=== PATIENT | female | born 1955 | race Caucasian/White ===

== ENCOUNTER 2020-11-22 14:44 | Emergency (ER) | payer SELFPAY ==
[2020-11-22 15:04] VITALS: BP 121/80; PULSE 73; RESP 18; TEMP 36.4; O2SAT 96; BMI 33.8
--- NOTE | 2020-11-22 15:20 | ECG_ITS ---
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 Measurements Intervals [place] Rate: 70 P: 60 [place]: 183 QRS: 16 QRSD: 101 T: 41 QT: 399 QTc: 433 Interpretive Statements SINUS RHYTHM POSSIBLE RIGHT VENTRICULAR CONDUCTION DELAY [RSR (QR) IN V1/V2] No previous ECG available for comparison Electronically Signed On 11-22-2020 19:28:31 CDT by Jerry Whitaker M.D. [id number]
--- NOTE | 2020-11-22 15:26 | W.ED.DIZZY ---
HPI - Dizziness General: Chief Complaint: Dizziness Stated Complaint: N/V, DIZZY, COLD SWEATS Time Seen by Provider: 11/22/20 15:19 History of Present Illness: HPI Narrative: Patient states that she has been feeling fine until she had a phone call this afternoon and when she got up she felt real dizzy after from culture back down she broke out in a cold sweat has been dizzy on and off last couple hours. Denies any shortness of breath chest pain nausea vomiting or diarrhea. Denies any ear problems. Has not been in the heat. Did not eat regular breakfast this morning as she normally does MD elicited complaint: dizziness Onset (ago): hour(s) Timing: sudden onset Severity: mild Description: room spinning Exacerbating factors: movement/ambulation Relieving factors: remaining still Associated symptoms: Reports no associated symptoms; Denies chest pain, chills, headache(s), nausea, nasal congestion or vomiting Associated neuro symptoms: Reports no associated symptoms Review of Systems Const: Denies: fever(s), chills or body aches Eyes: Denies: change in vision or blurry vision ENMT: Denies: throat pain or nasal congestion Card: Denies: chest pain or dyspnea on exertion Resp: Denies: dyspnea, productive cough or non-productive cough GI: Denies: abdominal pain, nausea or vomiting Musc: Denies: extremity pain Skin/Breast: Denies: rash Neuro: Reports: dizziness; Denies: headache(s) Psych: Denies: anxiety or depression Sukhwinder/Lymph: Denies: easy bruising PFSH ED PFSH: Social History Smoking and tobacco status: former smoker Physical Exam Const: COMMON NORMALS: no acute distress, average body habitus and patient oriented x3 HENMT: COMMON NORMALS: normocephalic HEAD & SCALP: normal to inspection and normocephalic FACE & SINUS: normal facial exam Eye: COMMON NORMALS: conjunctivae normal GENERAL EYE: appearance normal, both eyes and all related structures CONJUNCTIVA: Yes conjunctivae normal Neck/C-Spine: COMMON NORMALS: no JVD Chest: COMMONS NORMALS: normal inspection of the chest Resp: COMMON NORMALS: normal respiratory effort and clear to auscultation bilaterally AUSCULTATION: clear to auscultation bilaterally Cardio: COMMON NORMALS: no JVD, regular rate and regular rhythm RATE: regular rate RHYTHM: regular rhythm GI: COMMON NORMALS: Normal to inspection, nondistended, normoactive bowel sounds present Extremity: COMMON NORMALS: normal to inspection and full ROM Neuro: COMMON NORMALS: patient oriented x3 Course Vital Signs: Vital signs: Vital Signs Temperature 97.6 F 11/22/20 15:04 Pulse Rate 72 11/22/20 15:44 Respiratory Rate 18 11/22/20 15:04 Blood Pressure 118/72 11/22/20 15:44 Pulse Oximetry 96 11/22/20 15:04 MDM - Dizziness MDM Narrative: Medical decision making narrative: Appears to be isolated episode of dizziness. Were negative for any concerning factors. EKG look fine chest x-ray fine possible allergies. Patient will follow up in the clinic if symptoms continue she will try medication. Is advised she can return here if needed. Lab Data: Labs: Lab Results 11/22/20 11/22/20 11/22/20 Range/Units 15:30 15:30 15:30 WBC 8.0 (4.0-10.0) 10^3/ uL RBC 4.75 (4.1-5.3) 10^6/u L Hgb 14.0 (11.5-15.3) g/dL Hct 44.1 (37.0-47.0) % MCV 92.8 (81-99) fl MCH 29.5 (28.0-34.0) pg MCHC 31.7 (30.0-36.0) g/dL RDW 13.3 (12.1-15.1) % Plt Count 198 (130-400) 10^3/c mm MPV 11.7 H (7.4-10.4) fL Neut % (Auto) 58.1 % Lymph % (Auto) 30.1 % Marion % (Auto) 7.8 % Eos % (Auto) 2.5 % Baso % (Auto) 1.1 % Neut # (Auto) 4.63 (1.8-7.7) 10^3/u L Lymph # (Auto) 2.4 (0.8-4.8) 10^3/u L Marion # (Auto) 0.6 (0.2-0.9) 10^3/u L Eos # (Auto) 0.2 (0.0-0.8) 10^3/u L Baso # (Auto) 0.1 (0.0-0.1) 10^3/u L Nucleated RBC % (a uto) 0 % Nucleated RBCs # 0.0 /100WBC Sodium 138 (136-145) mmol/L Potassium 3.8 (3.5-5.1) mmol/L Chloride 104 (98-107) mmol/L Carbon Dioxide 24 (22-29) mmol/L Anion Gap 13.8 (5-19) BUN 18 (8-23) mg/dL Creatinine 0.6 (0.5-0.9) mg/dL GFR Calculation 101.0 (90-130) mL/min Glucose 87 (65-115) mg/dL Calculated Osmolal ity 287 (285-295) mOsm/k g Calcium 9.3 (8.5-10.5) mg/dL Total Bilirubin 0.2 (0.15-1.2) mg/dL AST 24 (0-32) U/L ALT 20 (0-33) U/L Alkaline Phosphata se 67 (35-105) IU/L Troponin T Gen 5 n g/L 6 (0-10) ng/L Total Protein 7.2 (6.6-8.7) g/dL Albumin 4.3 (3.5-5.2) g/dL Globulin 2.9 (1.3-4.6) g/dL EKG Data^: EKG 1: EKG interpretation date: 11/22/20 EKG interpretation time: 15:43 Computer generated interpretation: EKG shows sinus rhythm ventricular rate 70 bpm [place] interval 183 ms QRS duration 1 1 ms QT 399 ms Discharge Plan Discharge Patient Disposition: Home Clinical Impression: Dizziness Condition: Stable Prescriptions: New meclizine 25 mg tablet 12.5 mg PO TID PRN (Reason: dizziness) Qty: 14 RF: 0 Discharge Orders: Discharge ED (Routine); Ordered 11/22/20 Ordered By: Ubaldo Moran Discharge Diet: Usual diet Discharge Activity: Increase activity as tolerated Patient Instructions: Dizziness (ED) Activity Restrictions/Additional Instructions: Follow-up with medical provider as directed. Take medications as prescribed. Return to the ER or your medical provider if condition worsens. Please read and understand discharge instructions. If any questions ask please. Coding Level of Care Code ED Extrusion Process Operator for Chg Fwd Exam Comprehensive
[2020-11-22] MEDS: sodium chloride 0.9% 1,000 ML 999 ML IV (15:40)
[2020-11-22 15:44] VITALS: BP 118/72; BP 132/80; BP 141/75; PULSE 72; PULSE 73; PULSE 74
[2020-11-22 15:50] LABS: Basophils # 0.1 10^3/uL (0.0-0.1); Basophils % 1.1 %; Eosinophils # 0.2 10^3/uL (0.0-0.8); Eosinophils % 2.5 %; Hematocrit 44.1 % (37.0-47.0); Lymphocytes # 2.4 10^3/uL (0.8-4.8); Lymphocytes % 30.1 %; Mean Corpuscular HGB Conc 31.7 g/dL (30.0-36.0); Mean Corpuscular Hemoglobin 29.5 pg (28.0-34.0); Mean Corpuscular Volume 92.8 fl (81-99); Mean Platelet Volume 11.7 fL (7.4-10.4); Monocytes # 0.6 10^3/uL (0.2-0.9); Monocytes % 7.8 %; Neutrophils # 4.63 10^3/uL (1.8-7.7); Neutrophils % 58.1 %; Nucleated Red Blood Cells % 0 %; Platelet Count 198 10^3/cmm (130-400); Red Blood Count 4.75 10^6/uL (4.1-5.3); Red Cell Distribution Width 13.3 % (12.1-15.1)
[2020-11-22 16:13] LABS: Alanine Aminotransferase 20 U/L (0-33); Albumin Level 4.3 g/dL (3.5-5.2); Alkaline Phosphatase 67 IU/L (35-105); Anion Gap 13.8 (5-19); Aspartate Amino Transferase 24 U/L (0-32); Blood Urea Nitrogen 18 mg/dL (8-23); Calcium 9.3 mg/dL (8.5-10.5); Carbon Dioxide 24 mmol/L (22-29); Chloride 104 mmol/L (98-107); Globulin 2.9 g/dL (1.3-4.6); Glucose 87 mg/dL (65-115); Osmolality Calculated 287 mOsm/kg (285-295); Potassium 3.8 mmol/L (3.5-5.1); Sodium 138 mmol/L (136-145); Total Bilirubin 0.2 mg/dL (0.15-1.2); Total Protein 7.2 g/dL (6.6-8.7)
[2020-11-22 16:16] LABS: Troponin T (5th) Once 6 ng/L (0-10)
[2020-11-22 16:58] VITALS: BP 125/86; PULSE 75; RESP 16; O2SAT 98
[2020-11-22 17:20] LABS: Add Urine Microscopic? YES; Bilirubin Urine Neg (Negative); Blood Urine 2+ (Negative); Glucose Urine UA Norm (Normal); Ketones Urine Negative (Negative); Leukocyte Esterase Urine Negative (Negative); Nitrate Urine Negative (Negative); Protein Urine Neg (Negative); Urine Appearance Hazy (CLEAR); Urine Color Yellow (Yellow); Urobilinogen Urine Norm (Negative); pH Urine 5 (5-7)
[2020-11-22 17:21] LABS: Add Urine Culture? Yes; Bacteria Urine 1+ /hpf; RBC Urine 0-4 /hpf (0-2)
== END 2020-11-22 16:59 | disposition home or self-care (01) ==
PROVIDERS: Emergency Provider Nurse Practitioner Family
DX: R42 Dizziness and giddiness (principal); Z87.891 Personal history of nicotine dependence
CPT/HCPCS: 80053; 81001; 84484; 85025; 87086; 93005; 96360; 99284; J7030

== ENCOUNTER 2023-06-18 08:20 | Outpatient (CLI) | payer MEDICARE, SELFPAY ==
--- NOTE | 2023-06-18 08:26 | CT_ITS ---
WS: [id number] LDCT LUNG CANCER SCREENING TECHNIQUE: Noncontrast CT of the chest with coronal and sagittal reformatted images. CLINICAL INFORMATION: HX OF TOBACCO USE COMPARISON: None. DLP: 75.30 mGy.cm DIvol: Mean CTDIvol: 1.60 (mGy) All CT scans at [facility] use at least one of these dose optimization techniques: automat ed exposure control; mA and/or kV adjustment per patient size (includes targeted exams where dose is matched to clinical indication); or iterative reconstruction. FINDINGS: Fibrosis RIGHT lower lobe posteromedially. No other suspicious pulmonary parenchymal abnorm alities. Normal caliber thoracic aorta. Aortic calcification. Calcified LEFT hilar nodes. No axillary lymphade nopathy. Small esophageal hiatal hernia. Moderate thoracic kyphosis. Ankylosis thoracic spine. Disc o steophyte complexes in the midthoracic spine. Calcified granuloma LEFT lower lobe. IMPRESSION: CT/CT lung screening [id number] LUNG-RADS: 2-Benign Appearance or Behavior FOLLOW UP: 12 Month: Continue annual screening with LDCT
== END 2023-06-18 08:21 | disposition home or self-care (01) ==
LOC: RAD 08:23
PROVIDERS: PCP Family Medicine; Visit Provider Family Medicine
DX: Z87.891 Personal history of nicotine dependence (principal); K44.9 Diaphragmatic hernia without obstruction or gangrene; M40.204 Unspecified kyphosis, thoracic region; M45.4 Ankylosing spondylitis of thoracic region; J98.4 Other disorders of lung
CPT/HCPCS: 71271

== ENCOUNTER 2023-07-03 15:30 | Outpatient (CLI) | payer MEDICARE, MEDICAID, SELFPAY | END 2023-07-03 15:31 | disposition home or self-care (01) | LOC: SLEEP 07-04 10:06 | PROVIDERS: PCP Family Medicine; Visit Provider Family Medicine | DX: G47.33 Obstructive sleep apnea (adult) (pediatric) (principal) | CPT/HCPCS: G0399 ==

== ENCOUNTER → 2023-08-01 10:31 | Outpatient (BNVA) | payer MEDICARE, MEDICAID, SELFPAY | PROVIDERS: PCP Family Medicine; Visit Provider Internal Medicine Rheumatology | DX: Z79.899 Other long term (current) drug therapy (principal); M19.90 Unspecified osteoarthritis, unspecified site; Z11.1 Encounter for screening for respiratory tuberculosis; Z11.59 Encounter for screening for other viral diseases; M05.79 Rheumatoid arthritis with rheumatoid factor of multiple sites without organ or systems involvement; Z71.85 Encounter for immunization safety counseling | CPT/HCPCS: 36415; 80076; 82565; 85025; 86480; 86704; 86803; 87340; 99204 ==

== ENCOUNTER 2023-09-07 10:52 | Outpatient (CLI) | payer MEDICARE, MEDICAID, SELFPAY ==
--- NOTE | 2023-09-07 11:12 | MM_ITS ---
WS: [id number] BILATERAL 3D TOMOSYNTHESIS DIGITAL SCREENING MAMMOGRAPHY WITH CAD CLINICAL INFORMATION: SCREENING HISTORY: Screening mammogram. No current complaints. COMPARISON: None available TECHNIQUE: Bilateral CC and MLO views. FINDINGS: Scattered fibroglandular densities bilaterally. No suspicious focal mass, asymmetry, calcifications, or architectural distortion. No evidence of malignancy. Few incidental punctate calcifications. MM/[place] [id number] IMPRESSION: BI-RADS: 2-Benign FOLLOW UP: 1 Year Follow-up Recommend return to annual screening mammography.
== END 2023-09-07 10:53 | disposition home or self-care (01) ==
LOC: RAD 10:53
PROVIDERS: PCP Family Medicine; Visit Provider Family Medicine
DX: Z12.31 Encounter for screening mammogram for malignant neoplasm of breast (principal); R92.323 Mammographic fibroglandular density, bilateral breasts; R92.1 Mammographic calcification found on diagnostic imaging of breast
CPT/HCPCS: 77063; 77067

== ENCOUNTER 2023-10-23 11:05 | Outpatient (CLI) | payer MEDICARE, MEDICAID, SELFPAY ==
[2023-10-23 11:19] VITALS: PULSE 73; RESP 18; O2SAT 98
[2023-10-23 11:23] VITALS: PULSE 72
[2023-10-23] MEDS: albuterol 2.5 mg/3 mL Neb INHALATION (11:24)
== END 2023-10-23 11:06 | disposition home or self-care (01) ==
PROVIDERS: PCP Family Medicine; Visit Provider Family Medicine
DX: J84.10 Pulmonary fibrosis, unspecified (principal)
CPT/HCPCS: 94060

== ENCOUNTER → 2023-12-12 10:30 | Outpatient (BNVA) | payer MEDICARE, MEDICAID, SELFPAY | PROVIDERS: PCP Family Medicine; Visit Provider Internal Medicine Rheumatology | DX: M05.79 Rheumatoid arthritis with rheumatoid factor of multiple sites without organ or systems involvement (principal); Z79.899 Other long term (current) drug therapy; Z71.85 Encounter for immunization safety counseling | CPT/HCPCS: 36415; 80076; 82565; 85025; 85651; 86140; 99214 ==

== ENCOUNTER 2024-01-01 10:36 | Observation (INO) | payer MEDICARE, MEDICAID, SELFPAY ==
[2024-01-01] VITALS (18 sets, daily range): BP systolic 94–124; BP diastolic 48–86; PULSE 65–94; RESP 14–18; TEMP 36.4–37.3; O2SAT 92–97; BMI 37.3
[2024-01-01] MEDS: sodium chloride 0.9% 1,000 ML 30 ML IV (06:31)
--- NOTE | 2024-01-01 06:41 | P.ANESASSM_ITS ---
Pre-Anesthetic Assessment Height/Weight: Height 1.57 m Weight 92.533 kg Temp Pulse Resp BP Pulse Ox O2 Del Method 97.8 F 86 18 124/86 97 Room Air 01/01/24 06:08 01/01/24 06:08 01/01/24 06:08 01/01/24 06:08 01/01/24 06:08 01/01/24 06:23 Operation Date: 01/01/24 07:00 Proposed Procedures p Total Vaginal Hysterectomy TVH 84276, 11539, 24880, 70562, N81.4, N81.6(Not Applicable) - oM Bentley MD s Salpingo-Oophorectomy (Vaginal)(Bilateral) - Mo Bentley MD s Anterior Repair Anterior Colporrhaphy(Not Applicable) - MD alberto Jordan Posterior Repair Posterior Colporrhaphy(Not Applicable) - Mo Bentley MD s Midurethral sling(Not Applicable) - MD alberto Jordan Sacrospinous Ligament Suspension Sacrospinous Fixation(Not Applicable) - Mo Bentley MD Familial anesthetic complications: None Was Beta Donavon taken within 24 hours: N/A Was Clonidine taken within 24 hours: N/A Last intake: Intake Last Liquid Date 12/31/23 Last Liquid Time 21:00 Last Solid Date 12/31/23 Last Solid Time 21:00 Social No alcohol and No tobacco Exam alert, oriented x 3, clear to auscultation bilaterally and regular rate & rhythm Airway Mallampati: Class II Dentition: false Pulmonary Sleep Apnea Pulmonary fibrosis RLL - no functional limitations, no O2 Metabolic Morbid Obesity [facility] Rheumatoid Arthritis Anesthetic Plan ASA status: 3 Anesthesia: General Risk of > 500 ml blood loss (7ml/kg in children): No Medications/Allergies Home Medications Medication Instructions Recorded Confirmed Last Taken Type ibuprofen 200 mg tablet 400 mg PO Q6H PRN Pain (Scale 08/01/23 12/12/23 1 Day Ago History Score 1-3) ~12/10/23 hydroxychloroquine 200 mg tablet 200 mg PO BID #180 tabs 12/12/23 01/01/24 12/30/23 Rx prednisone 10 mg tablet See Rx Instructions PO .COMPLEX 12/12/23 01/01/24 12/04/23 Rx PRN joint pain #30 tabs Allergies Allergy/AdvReac Type Severity Reaction Status Date / Time No Known Allergies Allergy Verified 01/01/24 05:58 Current Medications Generic Name Dose Route Start Last Admin Trade Name Sadi PRN Reason Stop Dose Admin Sodium Chloride 1,000 mls @ 30 mls/hr 01/01/24 06:00 01/01/24 06:31 Sodium Chloride 0.9% IV 01/02/24 05:59 30 mls/hr .Q24H CAMRYN Administration PFSH Anesthesia Medical History Joint pain Back pain Uterus prolapse Cystocele with rectocele Immunization counseling High risk medication use Seropositive rheumatoid arthritis of multiple sites Surgical History History of tonsillectomy History of delivery Family History Other Diabetes Heart disease Hyperlipidemia Hypertension Rheumatoid arthritis Stroke Denies family history of Lupus (systemic lupus erythematosus) Osteoporosis Chronic kidney disease (CKD) Lung disease Cancer Social History Smoking and tobacco/nicotine status: never used tobacco/nicotine Data Anesthesia 01/01/24 06:11 Cardiac Studies: 2 No Data to Display
--- NOTE | 2024-01-01 06:58 | W.PM.OPSUD ---
Surgery/Procedure H&P Update DATE OF PROCEDURE: January 01, 2024 DATE H&P PERFORMED: 12/10/23 H&P UPDATE INFORMATION: I have reviewed H&P completed within last 30 days, I have examined patient prior to procedure and No changes to prior documentation PLANNED PROCEDURE: Operation Date: 01/01/24 07:00 [place]posed [place] [address], 68119, 63507, 75870, N81.4, N81.6(Not Applicable) - Mo Bentley MD s Salpingo-Oophorectomy (Vaginal)(Bilateral) - Mo Bentley MD s Anterior Repair Anterior Colporrhaphy(Not Applicable) - MD alberto Jordan Posterior Repair Posterior Colporrhaphy(Not Applicable) - MD alberto Jordan Midurethral sling(Not Applicable) - Mo Bentley MD s Sacrospinous Ligament Suspension Sacrospinous Fixation(Not Applicable) - Mo Bentley MD
[2024-01-01 07:03] LABS: Anion Gap 14.6 (5-19); Blood Urea Nitrogen 8 mg/dL (8-23); Calcium 9.1 mg/dL (8.5-10.5); Carbon Dioxide 22 mmol/L (22-29); Chloride 106 mmol/L (98-107); Creatinine Clr Calc Pharmacy 73.2449; Glomerular Filtration Rate 83.7 mL/min (90-130); Glucose 100 mg/dL (65-115); Osmolality Calculated 286 mOsm/kg (285-295); Potassium 3.6 mmol/L (3.5-5.1); Sodium 139 mmol/L (136-145)
[2024-01-01] MEDS: scopolamine 1.5 Patch 1 PATCH TRANSDERMA (07:24)
[2024-01-01] MEDS: ceFOXitin 2,000 mg SDV 2000 MG IVP (07:25)
[2024-01-01] MEDS: sodium chloride 0.9% 500 ML IV (07:25)
[2024-01-01] MEDS: metroNIDAZOLE IV 500 MG/100 ML PREMIX 100 MG IV (07:25)
[2024-01-01] MEDS: lidocaine-epi 2% PF 1:200,000 20 mL SDV 40 ML XX (08:14)
--- NOTE | 2024-01-01 09:55 | P.BOP_ITS ---
Date of Procedure: 01/01/24 Surgeon: Mo Bentley MD Radio Intelligence Operator(s): Procedure(s) performed: Total vaginal hysterectomy with right salpingo- oophorectomy, anterior colporrhaphy augmented with allograft, mid urethral sling, posterior colporrhaphy, and sacrospinous fixation Findings of the procedure(s): Uterine prolapse stage III, cystocele stage III, posterior vaginal magaña scar Estimated blood loss: 300 Specimen(s) removed: Uterus and right fallopian tube and ovary Post-operative diagnosis: Postop
--- NOTE | 2024-01-01 09:57 | P.OP_ITS ---
Operative Report Date of procedure: January 01, 2024 Pre-op diagnosis: Uterine prolapse stage III Cystocele stage III Stress urinary incontinence Post-op diagnosis: same Procedure done: Total vaginal hysterectomy with right salpingo-oophorectomy Anterior colporrhaphy augmented with allograft Mid urethral sling Posterior colporrhaphy Sacrospinous fixation Cystoscopy Implants: Coloplast dermis allograft Coloplast Altis sling Specimens removed/disposition: Uterus Right fallopian tube and ovary Surgeon: Mo Bentley MD Estimated blood loss (mL): 300 IV fluids (mL): 1,400 Urine output (mL): 150 Complications: None Findings: Uterine prolapse Cystocele Posterior vaginal wall scar Procedure: After informed consent, the patient was taken to the operating room where general anesthesia was administered. She was placed in the dorsal lithotomy position and prepped and draped in sterile fashion. Pre-Procedure Time-Out verifying the correct patient identity, correct procedure verified with consent, correct site and side, correct patient position, availability of correct implants and any special equipment or requirements was performed and acknowledge by the OR team. A weighted speculum was placed in the posterior vaginal wall and the right-angle retractor used to visualize the cervix. The cervix was grasped across the anterior lip with a single-toothed tenaculum and circumferentially infiltrated with 1% Xylocaine with epinephrine at this time. The cervix was circumferentially excised with the scalpel. The vaginal mucosa was dissected superiorly with sharp dissection. The anterior peritoneal reflection was identified, and it was entered with Metzenbaum scissors. A posterior colpotomy was made through the cul-de-sac space. The posterior peritoneum was identified in similar fashion and Metzenbaum scissors were used to enter the cul-de-sac. At this time, a weighted speculum was placed, advanced posteriorly into the cul-de-sac. At this time, the left and right uterosacral ligaments were isolated and ligated with 0 Vicryl. The LigaSure device was then used in a serial fashion up through the cardinal ligaments bilaterally. Finally, the uterine arteries were cross-clamped, cut, and ligated with the LigaSure device. LigaSure device was then used up through the broad ligaments superiorly and finally the uterus was rotated posteriorly. The left and right tubes were then cross-clamped and ligated with LigaSure device. The uterus was excised and submitted for pathologic evaluation. No other abnormalities were noted in the pelvic cavity. Tag sutures had been left on the remnants of the uterosacral ligaments. The right uterosacral ligament tag was placed under traction to identify the remnants of the right uterosacral ligament. A #0 PDS suture was placed to the proximal right uterosacral ligament and sutured to the anterior and posterior pelvic fascia beneath the vaginal cuff on the right side. Identical process was performed on the left, although some difficulty was encountered in identifying and actually suturing through the attenuated left uterosacral ligament. Both these sutures were tied to elevate the vaginal cuff. At this time, instruments were removed from the patient's abdominopelvic cavity. The remaining vaginal cuff mucosa and anterior and posterior fascia were then closed. Vaginal cuff closure and peritoneum were incorporated into one layer with 0 Vicryl suture in a continuous running interlocking fashion. Hemostasis was noted to be achieved. The anterior vaginal mucosa beneath the midurethra was infiltrated with 2% lidocaine with epinephrine. A vertical midline incision was made beneath the midurethra, nearly 1.5 cm length. Careful submucosal dissection was performed bilaterally up to the interior portion of the inferior pubic ramus. The insertion of adductor longus tendon on the patient?s pubic ramus was identified as reference land brenda. Palpated the notch along the internal edge of ischiopubic ramus where the adductor longus tendon and the inferior pubic ramus meet. The Altis single incision sling (SIS) was selected. Then the needle of the SIS inserted aiming at the location of this notch. One of the integrated self- fixating tips place onto the needle by sliding it over the end of the needle. The needle/sling assembly was inserted toward the location of identified reference notch making sure that the flat of the handle is perpendicular to the desired path. The needle was tracked along the posterior surface of the ischiopubic ramus until the midline brenda on the mesh is approximately at the midline position under the urethra. The needle was removed and the same was repeated on the contralateral side until the appropriate sling tension under the urethra was achieved ensuring that the mesh lays flat. The needle was removed and vaginal incision was closed in a running interlocking fashion with 2-0 Vicryl. Then an anterior colporrhaphy was performed. The vaginal mucosa was then injected in the midline with normal saline. The vaginal mucosa was then injected in the midline with normal saline. The vaginal mucosa was scored in the midline with the Bovie approximately 1 cm medial to the urethral meatus to 1 cm distal to the vaginal cuff. This vaginal mucosa was then undermined and then incised in the midline with the Metzenbaum scissors. The lateral aspects of the vaginal mucosa were then grasped with the Allis clamps and the vaginal mucosa was then dissected off the underlying fascia with the Metzenbaum scissors. Again, there was noted to be quite a bit of oozing at the incision, which was controlled with cautery. After adequate dissection was performed, bilaterally. A a Coloplast dermis allograft was modified at time of application to fit spacea, 3 x 3 cm piece . The allograft placed in front of cystocele ready to be implanted with the Basement Membrane facing the vagina mucosa. Suture is placed at distal end of graft and placed towards vaginal cuff. Final suture is placed on proximal portion of the graft to complete the placement overlying the bladder. Then Interrupted vertical mattress sutures of 0 Vicryl were used to elevate the cystocele superiorly. The excessive vaginal mucosa was then trimmed with the Metzenbaum scissors and the vaginal mucosa was then reapproximated in the running interlocking fashion with 2-0 Vicryl. The anterior vaginal mucosa beneath the midurethra was infiltrated with 2% lidocaine with epinephrine. A vertical midline incision was made beneath the midurethra, nearly 1.5 cm length. Careful submucosal dissection was performed bilaterally up to the interior portion of the inferior pubic ramus. The insertion of adductor longus tendon on the patient?s pubic ramus was identified as reference land brenda. Palpated the notch along the internal edge of ischiopubic ramus where the adductor longus tendon and the inferior pubic ramus meet. The Altis single incision sling (SIS) was selected. Then the needle of the SIS inserted aiming at the location of this notch. One of the integrated self- fixating tips place onto the needle by sliding it over the end of the needle. The needle/sling assembly was inserted toward the location of identified reference notch making sure that the flat of the handle is perpendicular to the desired path. The needle was tracked along the posterior surface of the ischiopubic ramus until the midline brenda on the mesh is approximately at the midline position under the urethra. The needle was removed and the same was repeated on the contralateral side until the appropriate sling tension under the urethra was achieved ensuring that the mesh lays flat. The needle was removed and vaginal incision was closed in a running interlocking fashion with 2-0 Vicryl. A 2% lidocaine with epinephrine solution was infiltrated under the posterior vaginal mucosa midline and into the perineal body. A quinton-shaped skin incision was cut in the perineum. The posterior vaginal wall was opened vertically and midline up to the apex of the rectocele. The cut edges were held and splayed laterally with a series of Allis clamps. The open vaginal mucosa was then dissected laterally with a combination of sharp and blunt dissection, exposing the perirectal fascia. A finger is inserted through the incision in the posterior vaginal mucosa, dissecting out the rectovaginal space (RVS). The right rectal pillar (RRP) is identified. The rectal pillar can be bluntly perforated either with the finger and with the tip of a long Gianna clamp. A thin malleable retractor retractor is used for exposing the rectovaginal space in order to enter the pararectal space with retraction of the cardinal ligament, vagina, and rectum. Displacing the rectum to the left and the cardinal ligament and ureter anteriorly. A sponge dissector is used to bluntly dissect the sacrospinous ligament removing areolar tissue. The ischial spine was palpated directly, and a area approximately 2 cm medial to the spine was selected for insertion of the Anchorsure transvaginal sacrospinous fixation system. One end of the suture of Anchoresure system inserted through the sacrospinous ligament is placed through the muscular layer of the vagina. In a similar manner, the second suture is placed. The opposite end of the suture in the sacrospinous ligament is left free and held on a small hemostat. Then traction on this suture will draw the vaginal vault directly to the ligament, where a square knot affixes it to the sacrospinous ligament. After the aide stich is tied the second safety stich is tied. Then the colporrhaphy/vaginal repair is carried out in routine fashion. The perirectal fascia was then reapproximated with interrupted #2-0 Vicryl sutures to draw the lateral folds together and tuck the rectocele back. Deep interrupted sutures of #0 Vicryl were used to reapproximate the fibers of the levator ani muscles. The excess vaginal mucosa was trimmed. The posterior vaginal wall was closed with a running locked #0 Vicryl to the hymenal tags. The superficial perineal muscles were closed with running unlocked #0 Vicryl and the perineal skin was closed with running subcuticular #2-0 Vicryl. Then the Rodríguez catheter was removed and cystoscope was inserted. The bladder was filled with sterile water. Complete evaluation of the bladder mucosa was performed noting no lacerations, dimpling, tears, bleeding of the mucosa or muscular layers. Both ureteral orifices were identified. Prompt excretion of urine from both ureteral orifices was noted. Cystoscope was withdrawn. Rodríguez catheter was then placed yielding clear arjun urine. A vaginal packing with Premarin cream was placed to provide support during the healing process. The patient tolerated the procedure well and was taken to the recovery room in a stable condition. Sponge and needle counts were correct x3.
[2024-01-01] MEDS: ondansetron 2 mg/ML SDV 2 mL 4 MG IVP (10:37)
--- NOTE | 2024-01-01 10:45 | ANE.PACU2 ---
Inpatient post-anesthesia follow up: Airway intact: Yes Vital signs: Temperature 98.0 F Pulse Rate 79 Respiratory Rate 16 Blood Pressure 107/58 Pulse Oximetry 97 Oxygen Delivery Me thod Room Air Oxygen Flow Rate 6 Fraction of Inspir ed Oxygen Hydration adequate: Yes Nausea and vomiting: No Pain level: 1 Mental status: Baseline
[2024-01-01] MEDS: diphenhydrAMINE 50 mg/mL SDV 1mL 12.5 MG IVP (11:16)
[2024-01-01] MEDS: ketorolac 30 mg/mL INJ IVP ×3 (11:20→22:38)
[2024-01-01] MEDS: dextrose 5%-lactated ringers 1,000 ML 125 ML IV ×2 (11:23→19:41)
[2024-01-01] MEDS: acetaminophen 325 mg Tablet 650 MG PO (15:16)
[2024-01-01] MEDS: hydroxychloroquine 200 mg Tablet PO (17:09)
[2024-01-01] MEDS: docusate sodium 100 mg Capsule PO (17:09)
[2024-01-02 04:00] VITALS: BP 108/65; PULSE 70; RESP 14; TEMP 36.7; O2SAT 95
--- NOTE | 2024-01-02 05:15 | PC.NURSE ---
This nurse removed vaginal packing at this time, minimal bleeding noted upon removal. Patient tolerated procedure well.
[2024-01-02 05:17] LABS: Hematocrit 36.5 % (36-47); Mean Corpuscular HGB Conc 32.1 g/dL (30-55); Mean Corpuscular Hemoglobin 29.5 pg (27-33); Mean Corpuscular Volume 91.9 fl (85-98); Mean Platelet Volume 11.4 fL (7.4-10.4); Platelet Count 174 10^3/cmm (157-399); Red Blood Count 3.97 10^6/uL (3.85-5.65); Red Cell Distribution Width 13.5 % (12.1-15.1); White Blood Count 11.08 10^3/uL (3.29-11.43)
[2024-01-02] MEDS: ketorolac 30 mg/mL INJ IVP (05:46)
[2024-01-02] MEDS: hydroxychloroquine 200 mg Tablet PO (09:04)
[2024-01-02] MEDS: docusate sodium 100 mg Capsule PO (09:04)
--- NOTE | 2024-01-02 10:55 | PM.OBGYDC ---
Discharge Providers CLEANING AND MAINTENANCE WORKER Date of Admission: 01/01/24 10:36 Date of Discharge: 01/02/24 Attending Provider at Admission: Mo Bentley MD Attending Provider at Discharge: Mo Bentley MD Primary Care Provider: Doreen Wakefield DO Reason for Visit Reason for Visit: N81.4 Hospital Course Hospital Course Mrs. Vallecillo 64-year-old female with a history of uterine prolapse stage III at cystocele stage III admitted for planned total vaginal hysterectomy with bilateral salpingo-oophorectomy, augmented anterior colporrhaphy, mid urethral sling, posterior colporrhaphy and sacrospinous fixation. A total vaginal hysterectomy with right salpingo-oophorectomy was performed, the left salpingo-oophorectomy was not performed as the ovary could not be safely identified. The anterior colporrhaphy augmented with allograft, mid urethral sling, posterior colporrhaphy and sacrospinous fixation were also performed without complications. Overnight observation was uneventful. Pain well under control with minimal medication. She is afebrile and hemodynamically stable postoperatively day 1, tolerating diet well. Ambulating without difficulty. She was counseled regarding pelvic rest for 6 weeks (no sex, no tampons, no vaginal douches). Return to the emergency room if any fever, increased bleeding or pain. Physical Exam Narrative: GA: Alert and oriented ?3. HEENT: WNL. Heart: Regular rate and rhythm. Lungs: Clear to auscultation bilaterally. Abdomen: Bowel sounds present, nontender. MANAGER CLINICAL APPLICATIONS: spotting bleeding. Extremities: No edema, no cyanosis, no calves pain. Urinary Catheter Management: Rodríguez: Cath Placed During This Visit: yes, but has since been removed by the nurse Reason for Continuing Indwelling Catheter: Decision to DC Catheter Urinary Catheter Date of Insertion: 01/01/24 Urinary Catheter Time of Insertion: 07:33 Date Urinary Catheter Removed: 01/02/24 Time Urinary Catheter Discontinued: 05:15 Discharge Data Studies Completed and Pending Pending at discharge Category Date Time Status Pathology: Surgical [PTH] Routine Pth 01/01/24 08:23 Received Laboratory Results WBC 11.08 10^3/uL (3.29-11.43) 01/02/24 05:10 RBC 3.97 10^6/uL (3.85-5.65) 01/02/24 05:10 Hgb 11.70 g/dL (11.27-16.99) 01/02/24 05:10 Hct 36.5 % (36-47) 01/02/24 05:10 MCV 91.9 fl (85-98) 01/02/24 05:10 MCH 29.5 pg (27-33) 01/02/24 05:10 MCHC 32.1 g/dL (30-55) 01/02/24 05:10 RDW 13.5 % (12.1-15.1) 01/02/24 05:10 Plt Count 174 10^3/cmm (157-399) 01/02/24 05:10 MPV 11.4 fL (7.4-10.4) H 01/02/24 05:10 Sodium 139 mmol/L (136-145) 01/01/24 06:11 Potassium 3.6 mmol/L (3.5-5.1) 01/01/24 06:11 Chloride 106 mmol/L (98-107) 01/01/24 06:11 Carbon Dioxide 22 mmol/L (22-29) 01/01/24 06:11 Anion Gap 14.6 (5-19) 01/01/24 06:11 BUN 8 mg/dL (8-23) 01/01/24 06:11 Creatinine 0.7 mg/dL (0.5-0.9) 01/01/24 06:11 GFR Calculation 83.7 mL/min (90-130) L 01/01/24 06:11 Glucose 100 mg/dL (65-115) 01/01/24 06:11 Calculated Osmolality 286 mOsm/kg (285-295) 01/01/24 06:11 Calcium 9.1 mg/dL (8.5-10.5) 01/01/24 06:11 Blood Type A Positive 01/01/24 06:11 Rho(D) Type Rh positive 01/01/24 06:11 Antibody Screen Negative 01/01/24 06:11 Vitals Last Vital Signs Temp 98.0 F 01/02/24 04:00 Pulse 70 01/02/24 04:00 Resp 14 01/02/24 04:00 BP 108/65 01/02/24 04:00 Pulse Ox 95 01/02/24 04:00 O2 Del Method Room Air 01/02/24 04:00 O2 Flow Rate 6 01/01/24 09:57 Results Labs OB ([facility]): Blood Type A Positive 01/01/24 Antibody Screen Negative 01/01/24 Hct 36.5 % (36-47) 01/02/24 Hgb 11.70 g/dL (11.27-16.99) 01/02/24 Rho(D) Type Rh positive 01/01/24 Plt Count 174 10^3/cmm (157-399) 01/02/24 Hep Bs Antigen Non-reactive (Nonreactive) 08/01/23 Hep B Core Total Ab Non-reactive (Nonreactive) 08/01/23 Hepatitis C Antibody Non-reactive (Nonreactive) 08/01/23 Discharge Plan Discharge Patient Disposition: Home Condition: Stable Prescriptions: New hydrocodone-acetaminophen 5-325 mg tablet 1 tab PO Q4H PRN (Reason: pain) Qty: 20 0RF acetaminophen 325 mg capsule 325 mg PO Q4H PRN (Reason: fever or pain) Qty: 60 0RF ibuprofen 800 mg tablet 800 mg PO TID PRN (Reason: pain) Qty: 60 0RF Continued ibuprofen 200 mg tablet 400 mg PO Q6H PRN (Reason: Pain (Scale Score 1-3)) hydroxychloroquine 200 mg tablet 200 mg PO BID Qty: 180 1RF prednisone 10 mg tablet See Rx Instructions PO .COMPLEX PRN (Reason: joint pain) Qty: 30 1RF Rx Instructions: take 1 or 2 tab daily for 3-7 days prn joint pain flare PO PRN; Discharge Orders: Discharge Order (Routine); Ordered 01/02/24 Ordered By: Mo Bentley Referrals: Mo Bentley MD [Physician] - 2 weeks Discharge Diet: Soft Mechanical Discharge Activity: Limit activity as instructed Patient Instructions: Acute Wound Care (DC), Opioid Safety, Post Anesthesia Care, Vaginal Hysterectomy (GEN), Anterior Vaginal Repair (GEN), Posterior Vaginal Repair (GEN), Bladder Sling for Women (GEN) Activity Restrictions/Additional Instructions: 1. Please call [facility] on next working day to make your post-operative appointment in 2 weeks. 2. Please stay home until you come back to the clinic on first post-hospatilization check up. 3. Please follow instructions on your medications CAREFULLY. 4. If you have abdominal incision, do not cover it unless dressing is necessary because of drainage. OK to shower, but avoid bath. Leave steri-strips until they fall off. If they are still on one week after surgery, you may remove them. 5. If you had vaginal surgery or vaginal repair, Dr. Bentley may instruct you to take SITZ bath. 6. Yellow, blood tinged odorous vaginal discharge is usually normal after hysterectomy or vaginal surgeries. 7. No SEXUAL INTERCOURSE, tampons, or douches until you are completely released from the post-operative care. 8. Avoid constipation by eating right and maybe using some Metamucil or Milk of Magnesia. 9. All prescription refills are given during the working hours. Please do no wait till it runs out. Call the clinic at [phone] before your medication runs out. The clinic will get in touch with your doctor to prescribe medications if necessary. 10. Please remain within 40 mile radius from our hospital because emergencies do happen now and then during the post-operative period. 11. If you have stairs at home, take one step at a time slowly and minimize the number of trips. It helps to stay in one floor for the next few days. No lifting except what you can lift by one hand until you are released from the post-operative care. 12. Driving is discouraged until you are well healed. It may be 3-4 weeks before you feel strong enough to drive. You should be able to turn and look through the rear window without pain and you should be able to push the brake pedal very hard without pain before you drive. No fast rules, but SAFETY should be your primary concern. DO NOT drive if you are on sedating medications such as narcotics. 13. Call the clinic (during working hours) to make urgent appointment or go to the Emergency room, if any of the following occurs: i. Vaginal bleeding becomes heavy, more than a period. ii. Incision becomes red and sore, or drains pus. iii. Your TEMPERATURE is over 100.4F or you have chill. iv. IV site becomes red and swollen (a little ``knot?? is usually OK) v. Persistent nausea and vomiting vi. Persistent constipation or diarrhea vii. Rash or allergic reaction to medications. Discharge Attestations CLEANING AND MAINTENANCE WORKER Time Spent in Discharge Care*: greater than 30 min Coding Level of Care Code Acute Code for Chg Fwd
[2024-01-02 11:28] VITALS: BP 130/66; PULSE 70; RESP 15; TEMP 36.6; O2SAT 98
== END 2024-01-02 12:49 | disposition home or self-care (01) ==
LOC: OBGYN 10:36
PROVIDERS: Admitting Provider Obstetrics & Gynecology; PCP Family Medicine; Visit Provider Obstetrics & Gynecology
PROC: (CPT 57260; principal; 2024-01-01 07:00)
PROC: (CPT 58720; 2024-01-01 07:00)
PROC: 0JQC0ZZ Repair Pelvic Region Subcutaneous Tissue and Fascia, Open Approach (ICD-10-PCS; CPT 57240; 2024-01-01 07:00)
PROC: (CPT 57250; 2024-01-01 07:00)
PROC: (CPT 57288; 2024-01-01 07:00)
PROC: (CPT 57282; 2024-01-01 07:00)
DX: N81.3 Complete uterovaginal prolapse (principal); N39.3 Stress incontinence (female) (male); G47.30 Sleep apnea, unspecified; E66.01 Morbid (severe) obesity due to excess calories; Z68.37 Body mass index [BMI] 37.0-37.9, adult; Z87.891 Personal history of nicotine dependence
CPT/HCPCS: 57260; 57282; 57288; 58262; 36415; 51798; 80048; 85027; 86850; 86900; 88307; C1713; C1762; G0378; J0694; J1100; J1200; J1885; J2371; J2405; J2704; J2710; J3010; J3490; J7030; J7040; J7121

== ENCOUNTER 2024-06-18 06:00 | Outpatient (CLI) | payer MEDICARE, MEDICAID, SELFPAY | END 2024-06-18 06:01 | disposition home or self-care (01) | LOC: LAB 06-24 13:29 | PROVIDERS: PCP Family Medicine; Visit Provider Internal Medicine Rheumatology | DX: Z79.899 Other long term (current) drug therapy (principal) | CPT/HCPCS: 36415; 80076; 82565; 85025; 85651; 86140 ==

== ENCOUNTER → 2024-06-18 10:35 | Outpatient (BNVA) | payer MEDICARE, MEDICAID, SELFPAY | PROVIDERS: PCP Family Medicine; Visit Provider Internal Medicine Rheumatology | DX: M05.79 Rheumatoid arthritis with rheumatoid factor of multiple sites without organ or systems involvement (principal); Z79.899 Other long term (current) drug therapy; J84.9 Interstitial pulmonary disease, unspecified; Z71.85 Encounter for immunization safety counseling | CPT/HCPCS: 99214 ==

== ENCOUNTER 2024-07-04 10:36 | Outpatient (CLI) | payer OTHER, MEDICAID, SELFPAY ==
--- NOTE | 2024-07-04 11:00 | CTR_ITS ---
PROCEDURE INFORMATION: Exam: CT Chest Without Contrast; Diagnostic Exam date and time: 07/04/2024 11:21 AM Age: 68 years old Clinical indication: Condition or disease; Lung condition and disease; Other: Interstitial pulmonary disease, unspecified; Additional info: J84.9 - interstitial pulmonary disease, unspecified TECHNIQUE: Imaging protocol: Diagnostic computed tomography of the chest without contrast. Radiation optimization: All CT scans at this facility use at least one of these dose optimization techniques: automated exposure control; mA and/or kV adjustment per patient size (includes targeted exams where dose is matched to clinical indication); or iterative reconstruction. COMPARISON: CT lung screening [id number] 06/18/2023 8:32 AM RADIATION DOSE METRICS: Total DLP (mGy-cm): 1484.01 FINDINGS: Lungs: Supra area of subpleural ground-glass opacities along the medial aspect of the right lower lobe. No pulmonary consolidation. No infiltrative pulmonary no pulmonary. Pleural spaces: Unremarkable. No pneumothorax. No pleural effusion. Heart: Unremarkable. No cardiomegaly. No pericardial effusion. Coronary arteries: No significant coronary artery calcifications. Lymph nodes: Left hilar calcified lymph nodes. Vasculature: Unremarkable. No aortic aneurysm. Diaphragm: Small hiatal hernia. Liver: Subcentimeter left hepatic lobe hypodensity statistically represents a cyst or hemangioma. Spleen: Calcified splenic granulomas. Bones/joints: Multilevel degenerative changes of the visualized spine. Left renal cysts. Soft tissues: Unremarkable. CT/CT chest wo con [id number] IMPRESSION: No acute pulmonary findings. Additional incidental/chronic findings as above. COMMENTS: Consistent with the [employer]'s Incidental Findings Committee white paper (J Am Emily Radiol 2018): Any incidental renal lesion less than 1 cm or classified as too small to characterize, or any incidental cystic renal lesion characterized as simple-appearing, is likely benign. No follow-up imaging is recommended for these lesions per consensus recommendations based on imaging criteria.
== END 2024-07-04 10:37 | disposition home or self-care (01) ==
LOC: RAD 10:38
PROVIDERS: PCP Family Medicine; Visit Provider Internal Medicine Rheumatology
DX: J84.9 Interstitial pulmonary disease, unspecified (principal); R91.8 Other nonspecific abnormal finding of lung field; I89.8 Other specified noninfective disorders of lymphatic vessels and lymph nodes; K44.9 Diaphragmatic hernia without obstruction or gangrene; R93.2 Abnormal findings on diagnostic imaging of liver and biliary tract; D73.89 Other diseases of spleen; M47.9 Spondylosis, unspecified; N28.1 Cyst of kidney, acquired
CPT/HCPCS: 36415; 71250; 80076; 82565; 85025; 85651; 86140

== ENCOUNTER 2024-08-13 09:22 | Outpatient (CLI) | payer OTHER, MEDICAID, SELFPAY | END 2024-08-13 09:23 | disposition home or self-care (01) | LOC: RT 09:23 | PROVIDERS: PCP Family Medicine; Visit Provider Internal Medicine Rheumatology | DX: J84.9 Interstitial pulmonary disease, unspecified (principal) | CPT/HCPCS: 94010; 94726; 94729 ==

== ENCOUNTER → 2024-12-03 11:06 | Outpatient (BNVA) | payer MEDICARE, MEDICAID, SELFPAY | PROVIDERS: PCP Family Medicine; Visit Provider Internal Medicine Rheumatology | DX: M05.79 Rheumatoid arthritis with rheumatoid factor of multiple sites without organ or systems involvement (principal); Z79.899 Other long term (current) drug therapy; Z71.85 Encounter for immunization safety counseling; R91.8 Other nonspecific abnormal finding of lung field; Z82.61 Family history of arthritis | CPT/HCPCS: 99214 ==

== ENCOUNTER 2024-12-23 09:09 | Outpatient (CLI) | payer MEDICARE, MEDICAID, SELFPAY ==
--- NOTE | 2024-12-23 09:14 | CT_ITS ---
WS: [id number] CT chest wo con [id number] HISTORY: R91.8 - Other nonspecific abnormal finding of lung field TECHNIQUE: Axial imaging performed through the thorax. Coronal and sagittal reformats are submitted. All CT scans at [facility] use at least one of these dose optimization techniques: automated exposure control; mA and/or kV adjustment per patient size (includes targeted exams where dose is matched to clinical indication); or iterative reconstruction. CONTRAST: None DLP: 489.29 mGy.cm COMPARISON: 07/04/2024, 06/18/2023 Lungs and central airway: Normally aerated lungs. No pulmonary mass. No bronchiectasis or honeycombing. There are a few benign calcified granulomata. Interstitial reticulation and groundglass attenuation adjacent to relate thoracic spine osteophyte in the RIGHT lower lobe is an area of atelectasis/fibr osis. Subsegmental atelectasis in the anterior RIGHT middle lobe adjacent to the fissure. Pleura: Normal. No pleural effusion. Heart and pericardium: Normal size heart with no pericardial effusion. Mediastinum and agustin: No mediastinum or hilar adenopathy. Vessels: Mild atherosclerosis aorta. Normal size pulmonary artery. Chest wall and lower neck: No soft tissue masses. Upper abdomen: Small hiatal hernia. 6 mm cyst LEFT lobe of the liver. Incompletely visualized 2.3 cm low-attenuation mass mid posterior LEFT kidney is probably a cyst. Hounsfield units are low. No adrenal mass. Osseous structures: Mild increase in thoracic kyphosis. Mild to moderate degenerative disc disease in the thoracic spine with osteophytosis. CT/CT chest wo con [id number] IMPRESSION: 1. No pneumonia, pulmonary mass or nodule. 2. Paraspinal atelectasis/fibrosis in the medial RIGHT lower lobe. Paraspinal fibrosis is not associated with ILD. 3. No mediastinal or hilar adenopathy. 4. LEFT hepatic lobe cyst and incompletely visualized probable cyst in the pos terior LEFT kidney.
== END 2024-12-23 09:10 | disposition home or self-care (01) ==
LOC: RAD 09:11
PROVIDERS: PCP Family Medicine; Visit Provider Internal Medicine Rheumatology
DX: R91.8 Other nonspecific abnormal finding of lung field (principal); J98.11 Atelectasis; K76.89 Other specified diseases of liver; M40.204 Unspecified kyphosis, thoracic region; M25.78 Osteophyte, vertebrae
CPT/HCPCS: 71250

== ENCOUNTER → 2024-12-31 10:45 | Outpatient (BNVA) | payer MEDICARE, MEDICAID, SELFPAY | PROVIDERS: PCP Family Medicine; Visit Provider Internal Medicine | DX: R93.89 Abnormal findings on diagnostic imaging of other specified body structures (principal); M05.79 Rheumatoid arthritis with rheumatoid factor of multiple sites without organ or systems involvement; Z87.891 Personal history of nicotine dependence; J44.9 Chronic obstructive pulmonary disease, unspecified | CPT/HCPCS: 36415; 85025; 99204; Q3014 ==

== ENCOUNTER 2025-01-13 11:15 | Outpatient (CLI) | payer OTHER, MEDICAID, SELFPAY | END 2025-01-13 11:16 | disposition home or self-care (01) | LOC: RT 01-17 07:42 | PROVIDERS: PCP Family Medicine; Visit Provider Internal Medicine | DX: J44.9 Chronic obstructive pulmonary disease, unspecified (principal) | CPT/HCPCS: 94010; 94726; 94729 ==

== ENCOUNTER → 2025-02-10 11:10 | Outpatient (BNVA) | payer OTHER, MEDICAID, SELFPAY | PROVIDERS: PCP Family Medicine; Visit Provider Internal Medicine | DX: R93.89 Abnormal findings on diagnostic imaging of other specified body structures (principal); M05.79 Rheumatoid arthritis with rheumatoid factor of multiple sites without organ or systems involvement; R09.82 Postnasal drip; Z87.891 Personal history of nicotine dependence | CPT/HCPCS: 99214; Q3014 ==